=== PATIENT | female | born 1960 | race Two or more races ===

== ENCOUNTER 2020-07-03 11:15 | Day surgery (SDC) | payer OTHER ==
[~2020-07-03 11:15] MED LIST: ALEVE PO; [UNRECOGNIZED DRUG - OTHER] PO
== END 2020-07-04 01:15 | disposition home or self-care (01) ==
LOC: CIR.AMB 11:15
PROVIDERS: ATTEND Obstetrics & Gynecology Obstetrics
DX: N93.8 Other specified abnormal uterine and vaginal bleeding (principal); Z20.828 Contact with and (suspected) exposure to other viral communicable diseases